=== PATIENT | female | born 1945 | race Caucasian/White ===

== ENCOUNTER 2018-03-04 06:30 | Day surgery (SDC) | payer MEDICARE, BC ==
[~2018-03-04 06:30] MED LIST: Bupivacaine 0.25% 10 ML SDV ONE; methylPREDNISolone Acetate 80 MG/ML SDV ONE
[2018-03-04] MEDS ORDERED: Lactated Ringers 1,000 ML IV SCH (07:05)
[2018-03-04] MEDS ORDERED: Midazolam 1 MG/ML 2 ML SDV ONE (07:23)
[2018-03-04] MEDS ORDERED: fentaNYL 100 MCG/2 ML SDV ONE (07:24)
[2018-03-04] MEDS ORDERED: Propofol 200 MG/20 ML SDV ONE (07:24)
--- NOTE | 2018-03-04 14:03 | OR ---
DATE OF PROCEDURE: 03/04/2018 PROCEDURE: Colonoscopy. FINDINGS: 1. Normal colonoscopy. 2. Random biopsies of ascending colon and rectum to evaluate for inflammatory/irritable bowel disease. PREOPERATIVE DIAGNOSIS: Chronic diarrhea. POSTOPERATIVE DIAGNOSIS: Chronic diarrhea. RISKS: Risks, benefits, alternatives, and limitations including, but not limited to infection, bleeding, and perforation were explained to the patient who wished to proceed. PROCEDURE IN DETAIL: The patient was placed in left lateral decubitus position. Digital rectal exam was performed without abnormality. The scope was introduced and advanced atraumatically to the ileocecal valve. The scope was brought back to the ascending, transverse, descending colon, and retroflexed. No evidence of old or new blood. No masses. No polyps. No significant inflammation. The biopsies were performed randomly to evaluate for the aforementioned diseases. The patient tolerated the procedure well. Wang Schmidt MD /[id number]
== END 2018-03-04 10:52 | disposition home or self-care (01) ==
LOC: JP.SDS 06:30
PROVIDERS: ATTEND Surgery
DX: K52.9 Noninfective gastroenteritis and colitis, unspecified (principal); I10 Essential (primary) hypertension; E66.9 Obesity, unspecified; E78.5 Hyperlipidemia, unspecified
CPT/HCPCS: 45380; 88305; J2250; J2704; J3010; J7120; J1040

== ENCOUNTER 2022-03-11 09:47 | Emergency (ER) | payer MEDICARE | END 2022-03-11 11:53 | disposition home or self-care (01) | LOC: JP.ED 09:47 | DX: R04.0 Epistaxis (principal); E78.00 Pure hypercholesterolemia, unspecified; I10 Essential (primary) hypertension; E66.9 Obesity, unspecified; Z68.31 Body mass index [BMI] 31.0-31.9, adult; Z79.82 Long term (current) use of aspirin; Z79.899 Other long term (current) drug therapy | CPT/HCPCS: 30901; 30903; 99281; 99283-25 ==

== ENCOUNTER 2022-03-12 15:01 | Emergency (ER) | payer MEDICARE | END 2022-03-12 15:29 | disposition home or self-care (01) | LOC: JP.ED 15:01 | DX: R04.0 Epistaxis (principal); E78.00 Pure hypercholesterolemia, unspecified; E03.9 Hypothyroidism, unspecified; I10 Essential (primary) hypertension; M19.90 Unspecified osteoarthritis, unspecified site; E66.9 Obesity, unspecified; Z68.29 Body mass index [BMI] 29.0-29.9, adult; Z90.49 Acquired absence of other specified parts of digestive tract; Z79.82 Long term (current) use of aspirin; Z79.899 Other long term (current) drug therapy; Z88.8 Allergy status to other drugs, medicaments and biological substances | CPT/HCPCS: 99281; 99283 ==

== ENCOUNTER 2023-05-06 08:31 | Day surgery (SDC) | payer MEDICARE ==
[2023-05-06] MEDS ORDERED: Sodium Chloride 0.9% 10 ML Syringe FLUSH PRN (09:15)
== END 2023-05-06 10:02 | disposition home or self-care (01) ==
LOC: JP.SDS 08:31
PROVIDERS: ATTEND Ophthalmology
DX: H26.9 Unspecified cataract (principal); I10 Essential (primary) hypertension; E78.5 Hyperlipidemia, unspecified; E66.9 Obesity, unspecified; E03.9 Hypothyroidism, unspecified; Z88.8 Allergy status to other drugs, medicaments and biological substances; Z68.28 Body mass index [BMI] 28.0-28.9, adult
CPT/HCPCS: 66984; J3490

== ENCOUNTER 2023-05-27 08:01 | Day surgery (SDC) | payer MEDICARE ==
[~2023-05-27 08:01] MED LIST changes: -Bupivacaine 0.25% 10 ML SDV ONE; +Sodium Chloride 0.9% 10 ML Syringe FLUSH PRN; -methylPREDNISolone Acetate 80 MG/ML SDV ONE
== END 2023-05-27 09:20 | disposition home or self-care (01) ==
LOC: JP.SDS 08:01
PROVIDERS: ATTEND Ophthalmology
DX: H26.9 Unspecified cataract (principal); I10 Essential (primary) hypertension; E78.5 Hyperlipidemia, unspecified; E03.9 Hypothyroidism, unspecified; Z88.8 Allergy status to other drugs, medicaments and biological substances
CPT/HCPCS: 66984; J3490